=== PATIENT | male | born 1975 | race Caucasian/White ===

== ENCOUNTER 2018-12-20 01:11 | Emergency (ER) | payer SELFPAY ==
[~2018-12-20] VITALS: Ht 185.4 cm; Wt 84.8 kg
--- OUTSIDE RECORDS SUMMARY | 2018-12-20 01:17 | XMS REPORT | Continuity of Care Document ---
Author Author [facility] Address Unknown Phone Unavailable Allergies Active Description Code Type Severity Reaction Onset Reported/Identified Relationship to Patient Clinical Status Yes NO NAME AVAILABLE 86442 DRUG N/ A N/A Yes NKA NKA Drug Allergy N/A N/A Medications Medication Packaging Start Date Stop Date Route Dosage Sig SODIUM CHLORIDE 0.9 % IV BOLUS 09/25/2016 Intravenous 1000 BOLUS Problems Date Dx Coded Attending Type Code Diagnosis Diagnosed By 06/19/2015 842.00 Sprain of unspecified site of wrist 11/06/2015 Vick Smith 924.20 Contusion of foot 11/06/2015 Vick Smith S90.32XA Contusion Of Left Foot, Initial Encounter 11/24/2015 JOE WHEAT K08.8 Other specified disorders of teeth and supporting structures 11/24/2015 JOE WHEAT K08.9 Disorder of teeth and supporting structures, unspecified 03/11/2016 Bladimir Ghotra L03.114 Cellulitis Of Left Upper Limb 03/12/2016 Delia Rey 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 Results Test Result Range CK - 09/25/16 07:45 CPK 285 U/L 38-174 CBC WITH AUTO DIFFERENTIAL - 09/25/16 07:45 BASOPHILS RELATIVE PERCENT 0.6 % 0.0-2.5 EOSINOPHILS RELATIVE PERCENT 1.6 % <=5.0 HEMATOCRIT 42.3 % 38.8-50.0 HEMOGLOBIN 14.5 g/dL 13.5-17.5 LYMPHOCYTES RELATIVE PERCENT 17.4 % 22.0-49.0 MEAN CORPUSCULAR HEMOGLOBIN 32.2 pg 26.0-34.0 MEAN CORPUSCULAR HEMOGLOBIN CONC 34.3 g/dL 31.0-37.0 MEAN CORPUSCULAR VOLUME 94.0 fL 81.2-95.1 MONOCYTES RELATIVE PERCENT 6.0 % 2.0-9.0 NEUTROPHILS RELATIVE PERCENT 74.4 % 40.0-75.0 NUCLEATED RED BLOOD CELLS 0 /100 <=0 PLATELET COUNT 347 10E9/L 150-450 RED BLOOD CELL COUNT 4.50 10E12/L 4.32-5.72 RED CELL DISTRIBUTION WIDTH 13.3 % 11.8-15.6 2001658 10.9 10E9/L 3.5-10.5 7404928 1.90 10E9/L 0.90-2.90 8517028 0.66 10E9/L 0.30-0.90 4419868 0.18 10E9/L 0.05-0.50 8254231 8.13 10E9/L 1.70-7.00 4073019 0.07 10E9/L 0.00-0.30 9666462 0 % ALCOHOL, SERUM - 09/25/16 07:45 ALCOHOL, SERUM < mg/dL <=10 EXTRA LIGHT BLUE TOP - 09/25/16 07:45 1324 Extra tube in lab DRUG SCREEN (8) MEDICAL - 09/25/16 08:28 AMPHETAMINE Positive Cutoff 1000 ng/mL Negative BARBITURATES Negative Cutoff 200 ng/mL Negative BENZODIAZEPINES Negative Cutoff 200 ng/mL Negative COCAINE (METABOLITE) Negative Cutoff 300 ng/mL Negative MDMA URINE Negative Cutoff 500 ng/mL Negative OPIATES Negative Cutoff 300 ng/mL Negative PCP Negative Cutoff 25 ng/mL Negative PH UA 7.0 5.0-8.0 SPECIFIC GRAVITY UA 1.012 1.003-1.030 THC Negative Cutoff 50 ng/mL Negative [id number] Chain of custody not received Encounters ACCT No. Visit Date/Time Discharge Status Pt. Type Provider Facility Loc./Unit Complaint [id number] 09/25/2016 07:07:51 09/25/2016 11:58:00 DIS Emergency WARREN URIARTE [facility] ADENIKE [id number] 03/06/2016 13:03:27 03/06/2016 23:59:59 CLS Outpatient MALLORY MERINO [facility] RISHABH [id number] 09/25/2016 07:23:39 Document Registration [id number] 03/05/2016 15:57:00 03/05/2016 16:37:00 DIS Emergency Krissy, [facility] STMAER injury to left elbow [id number] 03/02/2016 15:30:00 03/02/2016 16:00:00 DIS Emergency Bladimir Ghotra [facility] STMAER right elbow injury from fall [id number] 10/19/2015 09:42:00 10/19/2015 10:55:00 DIS Emergency Vick Smith [facility] STMAER foot injury (left) [id number] 06/10/2015 19:48:00 Document Registration [id number] 10/18/2013 17:08:00 10/18/2013 18:41:00 DIS Emergency [id number] 09/24/2013 18:38:00 09/24/2013 19:16:00 DIS Emergency [id number] 04/01/2017 12:02:00 04/01/2017 13:02:00 DIS Emergency [facility] FED [id number] 04/30/2016 13:40:12 04/30/2016 23:59:00 [id number] 11/24/2015 08:28:00 11/24/2015 08:56:00 DIS Emergency JOE WHEAT [facility] FED [id number] 10/20/2014 16:36:00 10/20/2014 17:05:00 DIS Emergency ALANA CLITFON [facility] FED [id number] 01/29/2014 09:09:01 01/29/2014 23:59:00 DIS Outpatient SHMUEL HEREDIA [facility] [id number] 01/22/2014 08:49:53 01/22/2014 23:59:00 DIS Outpatient SHMUEL HEREDIA [facility]
--- OUTSIDE RECORDS SUMMARY | 2018-12-20 01:17 | XMS REPORT ---
Author Author MATHEUS ROBLEDO Organization [employer] Address Unknown Phone Unavailable Care Team Providers Care Ash Worker Name Role Phone MATHEUS ROBLEDO CP Unavailable Allergies No Known Allergies Problems No Known Problems Medications No Known Medications Results No Known Results Summary Purpose [employer] Submission
[2018-12-20] MEDS ORDERED: MELOXICAM TAB 15MG (01:27)
[2018-12-20] MEDS ORDERED: NAPROXEN 500 MG (01:27)
[2018-12-20] MEDS ORDERED: APAP (01:27)
[2018-12-20] MEDS ORDERED: HYDROCO (01:27)
[2018-12-20] MEDS ORDERED: CYCLOBENZAPR TAB 10MG (01:27)
--- NOTE | 2018-12-20 01:30 | NUR ---
patient is shown a list of medications and states he is no longer taking any of them at home.
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
[2018-12-20 01:52] VITALS: BP 138/97
--- NOTE | 2018-12-20 08:25 | Diagnostic Imaging Report ---
INDICATION: Severe mid foot pain. No known injury. Woke from sleep.. TECHNIQUE: 3 views of the left foot CORRELATION STUDY: None FINDINGS: The osseous structures of the foot are intact. Joint spaces are maintained. Alignment anatomic. Soft tissue densities are present could be artifact or perhaps overlying debris. IMPRESSION: 1. Negative for acute findings of the foot. Dictated by: Dictated on workstation # [id number]
== END 2018-12-20 01:52 | disposition home or self-care (01) ==
LOC: ER FS 01:14
DX: S90.32XA Contusion of left foot, initial encounter (principal); F17.210 Nicotine dependence, cigarettes, uncomplicated; F15.10 Other stimulant abuse, uncomplicated; W01.198A Fall on same level from slipping, tripping and stumbling with subsequent striking against other object, initial encounter
CPT/HCPCS: 73630

== ENCOUNTER 2019-05-08 00:54 | Emergency (ER) | payer SELFPAY ==
[~2019-05-08] VITALS: Ht 185.4 cm; Wt 77.1 kg
[~2019-05-08 00:54] MED LIST: APAP; CYCLOBENZAPR TAB 10MG; HYDROCO; MELOXICAM TAB 15MG; NAPROXEN 500 MG
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
[2019-05-08 01:11] VITALS: BP 145/88
== END 2019-05-08 01:11 ==
LOC: EDUNIT# 00:54 → ER FS 00:55
DX: F15.10 Other stimulant abuse, uncomplicated (principal); Z77.22 Contact with and (suspected) exposure to environmental tobacco smoke (acute) (chronic)
CPT/HCPCS: 99283

== ENCOUNTER → 2019-10-24 | Outpatient (CLI) | payer BC ==
--- NOTE | 2019-10-24 16:15 | Diagnostic Imaging Report ---
INDICATION: Fall. Pain. COMPARISON: None. FINDINGS: Three views of the left elbow show no fractures, dislocations, or other acute bony abnormalities identified. Joint spaces are well maintained throughout. The soft tissues appear unremarkable. No radiopaque foreign bodies are identified. IMPRESSION: No acute fractures or dislocations of the left elbow. Dictated by: Dictated on workstation # [id number]
== END ==
LOC: RAD FS 16:00
PROVIDERS: ATTEND Nurse Practitioner Family
DX: M25.522 Pain in left elbow (principal)
CPT/HCPCS: 73080